=== PATIENT | male | born 1940 | race African-American/Black ===

== ENCOUNTER 2017-05-06 22:50 | Inpatient (IN) | payer SELFPAY ==
[~2017-05-06] VITALS: Ht 175.3 cm; Wt 84.4 kg
[2017-05-06] MEDS ORDERED: ASPIRIN 81MG TABLET PO STA (23:08)
[2017-05-07 00:24] LABS: HEMATOCRIT. 40.7 % (42.0-52.0); HEMOGLOBIN. 13.3 g/dL (14.0-18.0); MEAN CORPUSCULAR HEMOGLOBIN 29.7 pg (28.0-32.0); MEAN CORPUSCULAR VOLUME 90.7 fL (80.0-94.0); MEAN PLATELET VOLUME 9.3 fl (7.4-10.4); PLATELET 141 x1000/uL (130-400); RED BLOOD CELL COUNT 4.48 mill/uL (4.7-6.1); RED CELL DISTRIBUTION WIDTH 15.3 % (11.6-14.6)
[2017-05-07 00:32] LABS: INR 1.3; PARTIAL THROMBOPLASTIN TIME 32.2 sec (23.4-31.0); PROTHROMBIN TIME 13.6 sec (9.4-11.6)
[2017-05-07 00:35] LABS: CHLORIDE 108 mEq/L (98-107)
[2017-05-07 00:42] LABS: TROPONIN I 0.13 ng/mL (0.00-0.04)
[2017-05-07] MEDS ORDERED: NITROGLYCERIN OINT 1GM/INCH UDPKT TD STA (00:44)
[2017-05-07] MEDS ORDERED: FUROSEMIDE 40MG/4ML VIAL IV STA (00:44)
[2017-05-07] MEDS ORDERED: ENOXAPARIN 80MG/0.8ML SYR SUBCUT ONE (01:15)
[2017-05-07 02:48] LABS: PLATELET ESTIMATE NORMAL
[2017-05-07 04:00] VITALS: BP 123/81
[2017-05-07 06:05] VITALS: BP 123/81
[2017-05-07 08:00] VITALS: BP 116/64
[2017-05-07] MEDS ORDERED: WARF5TAB73 PO (08:13)
[2017-05-07] MEDS ORDERED: MORPHINE SULFATE 4 MG/ML CPJ (NOT FOR IM USE) IV PRN (09:45)
[2017-05-07] MEDS ORDERED: HYDROCODONE/ACETAMINOPHEN 5/325MG TABLET PO PRN (09:45)
[2017-05-07] MEDS ORDERED: ONDANSETRON HCL 4MG/2ML VIAL IV PRN (09:45)
[2017-05-07] MEDS ORDERED: NA PHOS,M-B/NA PHOS,DI-BA ENEMA 118ML PR PRN (09:45)
[2017-05-07] MEDS ORDERED: CLONIDINE 0.1MG TABLET PO PRN (09:45)
[2017-05-07] MEDS ORDERED: MAGNESIUM/ALUMINUM HYDROXIDE/SIMETHICONE 30ML UDC PO PRN (09:45)
[2017-05-07] MEDS ORDERED: DIPHENHYDRAMINE 50MG/ML VIAL IV PRN (09:45)
[2017-05-07] MEDS ORDERED: LORAZEPAM 0.5MG TABLET PO PRN (09:45)
[2017-05-07] MEDS ORDERED: IPRATROPIUM/ALBUTEROL 0.5-3(2.5)MG/3ML NEB INH PRN (09:45)
[2017-05-07] MEDS ORDERED: ACETAMINOPHEN 325MG TABLET PO PRN (09:45)
[2017-05-07] MEDS ORDERED: DOCUSATE SODIUM 100MG CAPSULE PO PRN (09:45)
[2017-05-07 11:13] LABS: CHLORIDE 106 mEq/L (98-107)
[2017-05-07] MEDS: ENOXAPARIN 40MG/0.4ML SYR SUBCUT SCH (11:18)
[2017-05-07 12:00] VITALS: BP 122/75
[2017-05-07 12:16] LABS: T4 FREE 1.36 ng/dL (0.76-1.46)
[2017-05-07] MEDS ORDERED: FURO-152 PO (13:41)
[2017-05-07 15:41] LABS: CREATINE KINASE MB FRACTION 1.3 ng/mL (0.5-3.6); TROPONIN I 0.21 ng/mL (0.00-0.04)
[2017-05-07 16:00] VITALS: BP 110/69
[2017-05-07] MEDS: GUAIFENESIN 200MG/10ML SUGAR FREE UDC PO PRN ×2 (16:25→21:18)
[2017-05-07] MEDS: WARFARIN SODIUM 5MG TABLET PO SCH (18:07)
[2017-05-07 20:00] VITALS: BP 156/79
[2017-05-07] MEDS ORDERED: DIGOXIN 500MCG/2ML AMP IV SCH (21:00)
[2017-05-07] MEDS: IPRATROPIUM/ALBUTEROL 0.5-3(2.5)MG/3ML NEB HHN SCH (21:12)
[2017-05-07] MEDS: METOPROLOL TARTRATE 25MG TABLET PO SCH (21:18)
[2017-05-08] VITALS: BP 144/90
[2017-05-08] MEDS: IPRATROPIUM/ALBUTEROL 0.5-3(2.5)MG/3ML NEB HHN SCH (01:16)
[2017-05-08 04:00] VITALS: BP 145/93
[2017-05-08 07:17] LABS: CLARITY URINE CLOUDY (CLEAR); COLOR URINE DARK YELLOW (YELLOW); KETONES URINE NEGATIVE (NEGATIVE); LEUKOCYTE ESTERASE URINE NEGATIVE (NEGATIVE); NITRITE URINE NEGATIVE (NEGATIVE); OCCULT BLOOD URINE 3+ (NEGATIVE); PH URINE 5.5 (4.5-8.0); PROTEIN URINE 3+ (NEGATIVE)
[2017-05-08 07:47] LABS: *AMPHETAMINES SCREEN URINE NEGATIVE (NEGATIVE); *BARBITURATES SCREEN URINE NEGATIVE (NEGATIVE); *BENZODIAZEPINES SCREEN URINE NEGATIVE (NEGATIVE); *COCAINE SCREEN URINE NEGATIVE (NEGATIVE); CANNABINOID URINE SCREEN NEGATIVE (NEGATIVE); METHADONE URINE SCREEN NEGATIVE (NEGATIVE); OPIATES URINE SCREEN NEGATIVE (NEGATIVE); PHENCYCLIDINE URINE SCREEN NEGATIVE (NEGATIVE)
[2017-05-08 08:05] LABS: BASOPHILS % 0.8 % (0.0-2.0); HEMATOCRIT. 43.4 % (42.0-52.0); HEMOGLOBIN. 14.2 g/dL (14.0-18.0); LYMPHOCYTES % 14.1 % (20.0-50.0); MEAN CORPUSCULAR VOLUME 91.6 fL (80.0-94.0); MONOCYTES % 8.6 % (2.0-8.0); NEUTROPHILS % 76.5 % (40.0-76.0); PLATELET 133 x1000/uL (130-400); RED BLOOD CELL COUNT 4.73 mill/uL (4.7-6.1); RED CELL DISTRIBUTION WIDTH 15.8 % (11.6-14.6)
[2017-05-08 08:06] LABS: INR 1.2; PROTHROMBIN TIME 12.8 sec (9.4-11.6)
[2017-05-08 08:16] VITALS: BP 128/78
[2017-05-08] MEDS: METOPROLOL TARTRATE 25MG TABLET PO SCH (08:31)
[2017-05-08] MEDS: ENOXAPARIN 40MG/0.4ML SYR SUBCUT SCH (08:32)
[2017-05-08 08:36] LABS: CHLORIDE 104 mEq/L (98-107)
[2017-05-08] MEDS ORDERED: FUROSEMIDE 40MG/4ML VIAL IVP SCH (09:00)
[2017-05-08] MEDS ORDERED: ASPIRIN 81MG EC TABLET PO SCH (09:00)
[2017-05-08 09:07] LABS: CREATINE KINASE 97 IU/L (39-308); CREATINE KINASE MB FRACTION 1.7 ng/mL (0.5-3.6); HDL CHOLESTEROL 27 mg/dL (40-59); LDL CHOLESTEROL 63 mg/dL (5-100)
[2017-05-08 12:30] VITALS: BP 120/80
[2017-05-08 16:12] VITALS: BP 124/62
[2017-05-08] MEDS: WARFARIN SODIUM 5MG TABLET PO SCH (16:46)
[2017-05-08] MEDS ORDERED: IOHEXOL-350 100 ML BOTTLE ONE (17:36)
[2017-05-08] MEDS: GUAIFENESIN 200MG/10ML SUGAR FREE UDC PO PRN (17:42)
== END 2017-05-08 18:30 | disposition home or self-care (01) | DRG 133 ==
LOC: ER 23:00 → 6WST 05-07 01:07 → EDBEDREQ 05-07 01:11 → EDBEDREQTM 05-07 01:11 → ENRESERV 05-07 02:55
PROVIDERS: ADMIT Internal Medicine; ATTEND Internal Medicine
DX: J96.00 Acute respiratory failure, unspecified whether with hypoxia or hypercapnia (principal); I27.21 Secondary pulmonary arterial hypertension; R18.8 Other ascites; I11.0 Hypertensive heart disease with heart failure; I48.91 Unspecified atrial fibrillation; I50.9 Heart failure, unspecified; F10.21 Alcohol dependence, in remission; Z79.01 Long term (current) use of anticoagulants; Z86.73 Personal history of transient ischemic attack (TIA), and cerebral infarction without residual deficits; Z79.899 Other long term (current) drug therapy
CPT/HCPCS: 36415; 71045; 71250; 71275; 80048; 80053; 80061; 80305; 81003; 82550; 82553; 83036; 83880; 84439; 84443; 84484; 85025; 85379; 85610; 85730; 93005; 93306; 93970; 94640; 96372; 96374; 99285; J1160; J1650; J1940; J7030; J7620; Q9967